=== PATIENT | male | born 1955 | race Caucasian/White ===

== ENCOUNTER → 2018-05-20 | Outpatient (CLI) | payer OTHER | LOC: CAT 15:10 | DX: Z13.6 Encounter for screening for cardiovascular disorders (principal); E78.00 Pure hypercholesterolemia, unspecified; I25.10 Atherosclerotic heart disease of native coronary artery without angina pectoris ==

== ENCOUNTER 2018-05-28 13:37 | Observation (INO) | payer BC, OTHER ==
[~2018-05-28] VITALS: Ht 175.3 cm; Wt 95.3 kg
--- NOTE | ~2018-05-28 | H ---
[facility] [place] [address] HISTORY AND PHYSICAL Name: BISI HONG Room #: REG STARMikel Vyas.#: [id number] Admission: 05/28/18 ������������������ Attend Phys: Paul Bernard MD, Discharge: ������������������ Date of : 59 Report #: [id number] THIS REPORT FOR: //name// CC: Paul Foote DO DATE OF SERVICE: 05/28/2018 HISTORY OF PRESENT ILLNESS: The patient is a 62-year-old male who comes in with accelerating anginal pattern. He had nuclear stress testing today, which showed significant anterior wall ischemia. Having some definite exertional symptoms and some rest discomfort. Appears to be accelerating. This has been noted over the last 2 weeks, but certainly worse the last 3-4 days. Now with marked ischemic response. I am going to proceed on urgently to the catheterization lab to delineate the anatomy and possible intervention. He is approaching unstable anginal symptoms. He has been compliant with medications. He has an elevated coronary calcium score that was approaching 2000 that was done a couple of weeks ago. No prior cardiac disease. He has family history. Hypertension, hypercholesterolemia that had been fairly well controlled. HOME MEDICATIONS: Allopurinol, aspirin, Xanax 0.25 p.r.n., losartan 100, HCT 100/12.5, Bactrim, Valtrex, Crestor, rosuvastatin 20. PAST MEDICAL HISTORY: Positive for coronary calcium score, hypertension, hypercholesterolemia, some DJD. PAST SURGICAL HISTORY: No prior surgeries. SOCIAL HISTORY: He is . 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 Social drinker. No tobacco. He has a child, Shubham. FAMILY HISTORY: Strongly positive for premature coronary artery disease including predominantly his father. ALLERGIES: SHELLFISH. REVIEW OF SYSTEMS: Essentially negative except for stated above with the increasing fatigue and some nocturia. PHYSICAL EXAMINATION: GENERAL: He is pleasantly alert. VITAL SIGNS: Blood pressure was 134/82. HEENT: Eyes reveal xanthelasmas. Pharynx is clear. NECK: Shows preserved upstrokes without JVD or bruits. LUNGS: Clear. [facility] [address] [place] [address] HISTORY AND PHYSICAL Name: BISI HONG Room #: REG [facility]#: [id number] Admission: 05/28/18 ������������������ Attend Phys: Paul Bernard MD, Discharge: ������������������ Date of : 59 Report #: [id number] CARDIOVASCULAR: Regular rate and rhythm, S1, S2, without murmur or gallop. ABDOMEN: Soft. No HSM or abdominal bruit. EXTREMITIES: Reveal no edema. Distal pulses were intact. NEUROLOGIC: Nonfocal. SKIN: Warm and dry without xanthoma or ulcer. MUSCULOSKELETAL: No gross joint deformity. ASSESSMENT: 1. Unstable angina/coronary artery disease (markedly abnormal nuclear stress test suggesting significant anterior wall ischemia). 2. Coronary artery disease also documented by markedly elevated coronary calcium score. 3. Hypertension. 4. Hypercholesterolemia. 5. Strong family history of premature coronary disease. RECOMMENDATIONS AND PLAN: I am going to proceed urgently to the catheterization lab to delineate the anatomy. Risks, benefits, alternatives discussed with the patient and his family. He is pain free, but had been having some definite accelerating symptoms. Intervention is indicated. Thank you for asking me to assist in the care of this patient. ��������������������������������������������� ���������������������������������������� By: ��������������������������������������������� 1531 1554 Paul Bernard MD, FACC /nt
--- NOTE | ~2018-05-28 | D ---
[facility] [place] [address] DISCHARGE SUMMARY Name: BISI HONG Room #: 213-P [facility] Drew M.RCristobal#: [id number] Admission: 05/28/18 ������������������ Attend Phys: Paul Bernard MD, Discharge: 05/29/18 ������������������ Date of : 59 Report #: [id number] THIS REPORT FOR: //name// CC: Paul [facility] Torres Foote DATE OF SERVICE: 05/29/2018 HOSPITAL COURSE: The patient is a 62-year-old male admitted with accelerating anginal pattern and a markedly abnormal nuclear test having accelerating unstable anginal symptoms. Subsequently, taken urgently to the catheterization lab. This revealed a high-grade complex proximal LAD lesion. This was successfully dilated and stented with a 3.0 x 34 mm [place] Resolute drug-eluting stent. Post-dilated to 3.1 mm. An excellent result was obtained with brisk AMELIA grade 3 flow through this large LAD, which wrapped the apex. Mild circumflex disease was noted. The dominant right had a 60% mid vessel lesion, which we will follow. There is mild aortic root dilatation and we will follow that noninvasively with CT and echo. The echo suggested a 4.6 ascending aorta and the CAT scan, although noncontrast was approximately 5. We will get a formal CTA of this in a few months. There was no aortic insufficiency. LV function is subtle anterior wall lag, which I suspect improved. The troponin was 0.21. Laboratory work was otherwise normal. Platelets were 130, but were stable post procedure. The groin is stable without any hematoma. He had a vasovagal reaction post procedure and then one last night when he started having some nausea. He is up and ambulating, doing well. No lifting for 48 hours. No lying in tub, Jacuzzi or frankel for a week. No MRI or dental work for 3 months. DISCHARGE DIAGNOSES: 1. Coronary artery disease, accelerating angina/successful percutaneous transluminal coronary angioplasty stent of long complex proximal left anterior descending artery stenosis with medicated stent. 2. Mild ischemic cardiomyopathy, expect this to improve, then normalize. 3. Hypertension. 4. Hypercholesterolemia. Followup is also scheduled with Dr. Foote in 2 weeks. His LDL was 89 while I will advance rosuvastatin from 20 to 40 mg. I would like to push LDL into the 50-60 range. We will follow that up as outpatient and may need to advance with addition of Zetia. [address] [address] DISCHARGE SUMMARY Name: BISI HONG Room #: 213-P [facility] Drew [place]#: [id number] Admission: 05/28/18 ������������������ Attend Phys: Paul Bernard MD, Discharge: 05/29/18 ������������������ Date of : 59 Report #: [id number] Thank you for asking me to assist in the care of this patient. ��������������������������������������������� ���������������������������������������� By: ��������������������������������������������� 1053 31 Paul Bernard MD, FACC /nt
[2018-05-28 15:10] LABS: HEMOGLOBIN 14.6 gm/dL (14.0-18.0); MCH 30.9 pg (26.0-34.0); MCHC 34.8 g/dL (28.0-37.0); MCV 88.8 fL (80.0-100.0); RBC 4.73 mil/uL (4.50-6.00); RDW 13.4 % (10.5-14.5); WBC 6.1 thou/uL (4.0-11.0)
[2018-05-28 15:18] LABS: ANION GAP 6 mmol/L (7-16); BUN 15 mg/dL (7-18); CHLORIDE 99 mmol/L (98-107); CO2 26 mmol/L (21-32); CREATININE 1.1 mg/dL (0.7-1.3); GLUCOSE 113 mg/dL (74-106); POTASSIUM 3.3 mmol/L (3.5-5.1); SODIUM 131 mmol/L (136-145)
[2018-05-28 15:39] LABS: ALBUMIN 3.2 g/dL (3.4-5.0); CHOLESTEROL 135 mg/dL (<200); HDL CHOLESTEROL 31 mg/dL (>40); LDL CHOLESTEROL 89 mg/dL (<100); SGOT 17 U/L (15-37); SGPT 20 U/L (30-65); TC:HDL 4.4 Ratio (Not establshd); TOTAL BILIRUBIN 0.8 mg/dL (<0.1-1.0); TOTAL PROTEIN 5.7 g/dL (6.4-8.2); TRIGLYCERIDE 77 mg/dL (<150); VLDL 15 mg/dL (<40)
[2018-05-28 15:44] LABS: SERUM ASSESSMENT Clear
[2018-05-28 15:57] LABS: TROPONIN-I <0.06 ng/mL (<0.06)
[2018-05-28 17:54] VITALS: BP 113/74
--- NOTE | 2018-05-28 18:58 | NUR ---
PATIENT TO FLOOR AT 1630, REPORT RECIEVED. RIGHT GROIN SHEATH SITE WITH CDI DRESSING, NO HEMATOMA,+1 PEDAL PULSES. HEMOSTATISIS ACHIEVED AT 1555, PER DR. SILVER, BR UNTIL 8PM. NO COMPLIANTS OF CHEST PAIN OR NAUSEA. VSS.
[2018-05-28] MEDS ORDERED: CRESTOR20 MG PO (20:24)
[2018-05-28] MEDS ORDERED: ZYLOPRIM300 MG PO (20:25)
[2018-05-28] MEDS ORDERED: PROTONIX40 M1 PO (20:27)
[2018-05-28] MEDS ORDERED: XANAX 0.25 MG0.25 MG PO (20:28)
[2018-05-28] MEDS ORDERED: LOSARTAN-HCTZ1 EAC2 PO (20:30)
[2018-05-28] MEDS ORDERED: ASPIR 8181 MG PO (20:32)
[2018-05-28] MEDS ORDERED: VALACYCLOVIR500 MG PO (20:33)
[2018-05-29 04:44] LABS: HEMATOCRIT 43.1 % (42.0-52.0); HEMOGLOBIN 14.9 gm/dL (14.0-18.0); MCHC 34.6 g/dL (28.0-37.0); MCV 89.6 fL (80.0-100.0); RBC 4.81 mil/uL (4.50-6.00); RDW 13.4 % (10.5-14.5); WBC 6.5 thou/uL (4.0-11.0)
--- NOTE | 2018-05-29 05:38 | NUR ---
ASSUME PT CARE AT 1899. VSS. PT A&0X4. VERY PLEASANT, FAMILY AT BEDSIDE. MED REC COMPLETED. R GROIN SITE IS CDI, MILD BRUISING NOTED ON THE DISTAL PORTION OF THE TEGADERM TAPE. SITE IS SOFT, NON TENDER, NO COMPLAINTS OF PAIN FROM PT. PT GOT UP TO USE THE BATHROOM AFTER BEDREST WAS OVER, AT 2009. HE WAS STEADY ON HIS FEET. NO COMPLAINTS. AT ABOUT 2035, A CODE BLUE WAS CALLED ON PT THEM CANCELLED. FAMILY MEMBER AT BEDSIDE STATED THAT PT FELT NAUSEOUS, THEN REALLY SWEATY, THEN HE STARTED SHAKING, HIS EYES ROLLED BACK AND HE BLACKED OUT FOR A BRIEF MOMENT. BY THE TIME I ARRIVED INTO THE ROOM AT 2037, PT WAS A&0X4, AWAKE AND RESPONSIVE TO QUESTIONS. VITAL SIGNS WERE TAKEN, ALL WERE STABLE EXCEPT BLOOD PRESSURE WHICH WAS LOW. PT WAS STILL SWEATY BUT HE REPORTED FELING FINE EXCEPT FOR THAT BRIEF MOMENT WHEN HE PASSED OUT. STAT EKG WAS DONE, PT WAS SR, EKG WAS NORMAL. BLOOD SUGAR ALSO DONE AND WAS WITHIN NOMAL LIMITS. PT'S FAMILY CALLED DR SILVER, WHO SAW THE PT. DR SILVER EXPLAINED THAT PT HAD A VASOVAGEL EPISODE, REASSURED PT AND FAMLY THAT THEY SHOULD NOT BE WORRIED PT HAD THE SAME EPISODE EARLIER IN THE OFFICE. PT HAD NS GOING AT 100 AT THIS TIME, BLOOD PRESSUE BEGAN TRENDING UP, NO FURTHER COMPLAINTS OF DISCOMFORT OR DISTRESS FROM PT THROUGH THE NIGHT. HE GOT UP TO USE THE BATHROOM 2 OTHER TIMES DURING THE NIGHT WHILE BEING MONITORED CLOSELY, HE WAS FINE, HE BARELY GOT ANY SLEEP OVER THE NIGHT, HE STATED HE WAS NERVOUS TO GO TO SLEEP, XANAX GIVEN, PT SLEPT FOR ABOUT AN HOUR AND 30 MINUTES. PT HAS BEEN STABLE, NO COMPLAINTS OF DISTRESS. WILL CONTINUE TO CLOSELY MONITOR, SHOULD D/C THIS AM.
[2018-05-29 05:57] VITALS: BP 109/61
[2018-05-29 07:57] VITALS: BP 108/61
[2018-05-29] MEDS ORDERED: EFFIENT10 MG PO (10:57)
[2018-05-29] MEDS ORDERED: CRESTOR20 MG PO (10:57)
[2018-05-29] MEDS ORDERED: ASPIRIN325 PO (10:57)
[2018-05-29 11:08] VITALS: BP 108/61
--- NOTE | 2018-05-30 13:28 | EKG ---
[address] [address] ELECTROCARDIOGRAM REPORT Name: BISI HONG [facility]#: [id number] ������������������ Admission: 05/28/18 ������������������ Attend Phys: Paul Bernard MD, Discharge: 05/29/18 ������������������ Date of : 59 Report #: [id number] ����������������������������������������������������������������� [id number] THIS REPORT FOR: //name// [facility] Test Date: 2018-05-28 Test Time: 21:00:24 Pat Name: BISI HONG Department: Room: 213 Gender: M Rush Seater: Glenn MILES : 1955 Requested By: Paul Bernard Order Number: [id number] MD: Yunier Burgess Measurements Intervals [place] Rate: 72 P: 21 CO: 137 QRS: 50 QRSD: 96 T: 57 QT: 359 QTc: 393 Interpretive Statements Sinus rhythm Nonspecific T wave abnormality Compared to ECG 01/19/2000 21:49:00 ST and T wave abnormality is now present Electronically Signed On 05-30-2018 13:28:21 CDT by Yunier Burgess [email or web address] ��������������������������������������������� <ELECTRONICALLY SIGNED> ���������������������������������������� By: Yunier Burgess MD, [facility] ��������������������������������������������� 05/30/18 1328 2100 99 Yunier Burgess MD, [facility] /EPI
--- NOTE | 2018-05-30 13:36 | EKG ---
[place] [address] [facility] [place] [address] ELECTROCARDIOGRAM REPORT Name: BISI HONG Room #: [facility]#: [id number] ������������������ Admission: 05/28/18 ������������������ Attend Phys: Paul Bernard MD, Discharge: 05/29/18 ������������������ Date of : 59 Report #: [id number] ����������������������������������������������������������������� [id number] THIS REPORT FOR: //name// [facility] Test Date: 2018-05-29 Test Time: 06:25:10 Pat Name: BISI HONG Department: Room: 213 Gender: M Event Coordinator: : 1955 Requested By: Noelle Christopher Order Number: [id number] MD: Yunier Burgess Measurements Intervals [place] Rate: 72 P: 44 [place]: 154 QRS: 34 QRSD: 95 T: 9 QT: 343 QTc: 376 Interpretive Statements Sinus rhythm Nonspecific ST segment abnormality Compared to ECG 01/19/2000 21:49:00 No significant changes Electronically Signed On 05-30-2018 13:36:21 CDT by Yunier Burgess [email or web address] ��������������������������������������������� <ELECTRONICALLY SIGNED> ���������������������������������������� By: Yunier Burgess MD, [facility] ��������������������������������������������� 05/30/18 1336 4 Yunier Burgess MD, [facility] /EPI
--- NOTE | 2018-06-01 10:53 | CATHLAB ---
[facility] [place] [address] INVASIVE PROCEDURE REPORT Name: HAL,BISI N Room #: 213-P [facility]#: [id number] ������������� Admission: 05/28/18 ������������� Attend Phys: Paul Bernard, Discharge: ��� 05/29/18 ������������� ��� Date of : 59 Date of Service: 06/01/18 1052 �� Report #: [id number] �������� ��������������������������������������������[id number] THIS REPORT FOR: //name// APPROVED REPORT Study performed: 05/28/2018 13:50:47 Patient Details Patient Status: Out-Patient Room #: The patient is a 62 year-old male Event Personnel Paul Bernard Field Training Agent, García Gonsales RN RN, Angelique Damon RTR, Louis Altamirano Roberta Monitor Procedures Performed Art Access - R femoral artery* Left Heart Cath w/or w/o Coronaries [id number] [facility] Aortogram Abdominal Peripheral Angio 206599 [address] w/wo Plasty Single LAD 049336 03439 Initial Mod Sed Same Phys/QHP Gr5y 149015 09084 Mod Sed Same Phys/QHP Ea 401038 Supravalvular Aortography Injection [id number] ISVA Indication Chest pain Procedure Narrative The patient was brought urgently to the Cardiac Catheterization Laboratory and was prepped and draped in a sterile manner. The Right Groin^ was infiltrated with 1% Lidocaine subcutaneous anesthesia. A PINNACLE 6FR Sheath #[id number] sheath was inserted into the RFA^. Coronary angiography was performed using coronary diagnostic catheters. The right coronary system was accessed and visualized with a JR 4 catheter. The left coronary system was accessed and visualized with a JL 4 catheter. The left ventricle was accessed and visualized with a Pigtail catheter. Left ventriculogram was performed in DEE projection. An aortogram of the abdominal aorta was performed. Closure device was deployed with a 6 Fr Mynx. The patient tolerated the procedure well and there were no complications associated with the procedure. There was no hematoma. Intraoperative Conscious Sedation Sedation start time: 14:25 Case end Time: Fentanyl 100 mcg Versed 2 mg Fluoro Time: 0.[address] [address] INVASIVE PROCEDURE REPORT Name: HALBISI N Room #: 213-P [facility].#: [id number] ������������� Admission: 05/28/18 ������������� Attend Phys: Paul Bernard, Discharge: ��� 05/29/18 ������������� ��� Date of : 59 Date of Service: 06/01/18 1052 �� Report #: [id number] �������� ��������������������������������������������[id number] Dose: DAP 76739.50 cGycm2 1836 mGy Contrast Type and Amount: Omnipaque 325 ml Hemodynamics The aortic pressure is 118/70 mmHg with a mean of 73 mmHg. The left ventricular pressure is 114/13 mmHg with a mean of mmHg. The left ventricular end diastolic pressure is 17 mmHg. PCI Technique Lesion Percutaneous coronary intervention was performed on the proximal left anterior descending artery segment. A LAUNCHER 6FR EBU 4 #[id number] Guide Catheter was used to engage the ostium. A Luge Wire .014 x 182CM #[id number] Interventional Guidewire was used to cross the lesion. BALLOON DILATION A Balloon catheter Sprinter OTW 2.5 x 20 #[id number] was inserted and inflated up to 8.00atm for 18seconds. Additional Inflation: 12.00atm for 13seconds. Additional Inflation: 12atm for 18seconds. STENT DEPLOYMENT A drug-eluting stent RESOLUTE MONAE OTW 3.0 X 34 #[id number] was inserted and inflated up to 12.00atm for 26seconds. POST STENT DEPLOYMENT BALLOON DILATION A Balloon catheter TREK NC OTW 3.0 X 15 #[id number] was inserted and inflated up to 16atm for 18seconds. Additional Inflation: 17atm for 21seconds. Additional Inflation: 17.00atm for 22seconds. Conclusion #1 PTCA stent of a long high-grade subtotal proximal LAD lesion. ( slow flow) Placement of a 30 by 34 [place] resolute stent site a 3.2 mm in size AMELIA-3 grade 3 flow. #2 left main with distal irregularity of 20-30% #3 circumflex OM eccentric lesion of 20-30% otherwise preserved vessel. Moderate distribution. Moderate Z's and a small ramus branch #4 dominant right coronary with moderate calcification. Eccentric lesions in the proximal and mid vessel of 50% to 60% well preserved distal vessel with PDA MARY ELLEN widely patent #5 supravalvular aortography reveals mild aortic root dilatation with trivial aortic insufficiency we'll evaluate with CTA #6 normal left ventricular size and systolic function EF 60% [facility] [address] [place] [address] INVASIVE PROCEDURE REPORT Name: BISI HONG Room #: 213-P [facility] M.R.#: [id number] ������������� Admission: 05/28/18 ������������� Attend Phys: Paul Bernard, Discharge: ��� 05/29/18 ������������� ��� Date of : 59 Date of Service: 06/01/18 1052 �� Report #: [id number] �������� ��������������������������������������������[id number] Remissions and plan: Patient hemodynamically stable pain-free with resolution of EKG changes post procedure. We'll transfer to CCU to follow post stent protocol. We'll follow-up other moderate disease with serial stress testing and aortic root evaluation with formal CTA. Dual antiplatelet therapy will be continued indefinitely. ��������������������������������������������� <ELECTRONICALLY SIGNED> ���������������������������������������� By: Paul Bernard MD, FACC ��������������������������������������������� 06/01/18 1052 105 105 Paul Bernard MD, FACC /INF
== END 2018-05-29 12:15 | disposition home or self-care (01) ==
LOC: CATH 13:37 → 2N 16:28
PROVIDERS: Nurse Practitioner Adult Health; ADMIT Internal Medicine Cardiovascular Disease
DX: I25.110 Atherosclerotic heart disease of native coronary artery with unstable angina pectoris (principal); I10 Essential (primary) hypertension; E78.00 Pure hypercholesterolemia, unspecified; M19.90 Unspecified osteoarthritis, unspecified site; I25.5 Ischemic cardiomyopathy; E83.52 Hypercalcemia; I99.8 Other disorder of circulatory system; R94.39 Abnormal result of other cardiovascular function study; Z82.49 Family history of ischemic heart disease and other diseases of the circulatory system; Z91.013 Allergy to seafood

== ENCOUNTER → 2018-07-06 | Outpatient (CLI) | payer BC, OTHER ==
[~2018-07-06] MED LIST: ASPIR 8181 MG PO; ASPIRIN325 PO; CRESTOR20 MG PO; EFFIENT10 MG PO; LOSARTAN-HCTZ1 EAC2 PO; PROTONIX40 M1 PO; VALACYCLOVIR500 MG PO; XANAX 0.25 MG0.25 MG PO; ZYLOPRIM300 MG PO
[2018-07-06 13:53] LABS: CREATININE 1.2 mg/dL (0.7-1.3)
--- NOTE | 2018-07-06 14:28 | NUR ---
CT CALLED FOR CONTRAST DYE PROPHYLACTICS PER DR SILVER ORDER. PT HAS NOT RECEIVED CONTRAST IN PAST BUT ALLERGIC TO SHELLFISH. BENADRYL 50 MG IVP AND SOLU-MEDROL 125MG IVP. NO C/O.
== END ==
LOC: CAT 10:58
PROVIDERS: Internal Medicine Cardiovascular Disease
DX: Z01.812 Encounter for preprocedural laboratory examination (principal); I77.810 Thoracic aortic ectasia; R91.8 Other nonspecific abnormal finding of lung field

== ENCOUNTER → 2018-07-27 | Outpatient (CLI) | payer BC, OTHER | LOC: RAD 13:14 | DX: R91.8 Other nonspecific abnormal finding of lung field (principal); J98.4 Other disorders of lung ==

== ENCOUNTER → 2019-12-29 | Outpatient (CLI) | payer BC, OTHER | LOC: SJCVCIMAG 08:41 | PROVIDERS: ATTEND Internal Medicine Cardiovascular Disease | DX: I08.0 Rheumatic disorders of both mitral and aortic valves (principal); I25.119 Atherosclerotic heart disease of native coronary artery with unspecified angina pectoris; I10 Essential (primary) hypertension; I25.5 Ischemic cardiomyopathy ==

== ENCOUNTER → 2020-02-13 | Outpatient (CLI) | payer BC, OTHER | LOC: SJCVCIMAG 10:50 | PROVIDERS: ATTEND Internal Medicine Cardiovascular Disease | DX: I07.1 Rheumatic tricuspid insufficiency (principal); I25.10 Atherosclerotic heart disease of native coronary artery without angina pectoris; I10 Essential (primary) hypertension; I71.9 Aortic aneurysm of unspecified site, without rupture; Z98.61 Coronary angioplasty status ==